=== PATIENT | female | born 1995 | race Caucasian/White ===

== ENCOUNTER 2017-08-30 20:05 | Emergency (ER) | payer BC ==
[2017-08-30 20:42] LABS: Urine Blood NEGATIVE (NEG); Urine Glucose NEGATIVE (NEG); Urine Protein NEGATIVE (NEG); Urine Specific Gravity <1.005 (1.005-1.030)
[2017-08-30] MEDS ORDERED: NA CHLORIDE 0.9% 1,000 ML ONE (20:54)
[2017-08-30] MEDS ORDERED: ACETAMINOPHEN 500 MG TAB ONE (21:25)
[2017-08-30 21:26] LABS: Absolute Lymphocytes (CBC) 1.1 K/uL (0.7-4.9); Absolute Monocytes 0.8 K/uL (0.1-1.3); Absolute Neutrophil 8.2 K/uL (1.8-8.0); Basophils % 0.1 % (0-1.3); Bicarbonate 25 mEq/L (21-31); Eosinophils % 0.5 % (0-4.4); Glucose Level 99 mg/dL (65-120); Hematocrit 35.7 % (36.0-45.0); Lymphocytes % 10.9 % (15.3-44.8); MCH 32.1 pg (27.0-35.0); MCV 90.2 fL (80-100); MPV 9.8 fL (7.6-11.3); Monocytes % 7.9 % (3.3-12.3); Potassium 3.3 mEq/L (3.6-5.0); RBC Red Blood Cell Count 3.95 M/uL (3.86-4.86); Sodium Level 136 mEq/L (135-145)
[2017-08-30 21:26] LABS: Urine Bacteria <20 /HPF (<20); Urine RBC <5 /HPF (NONE SEEN)
[2017-08-30 21:27] LABS: Urine Culture Reflex Order NOT NEEDED
[2017-08-30 21:27] LABS: BUN Blood Urea Nitrogen 8 mg/dL (6-20)
[2017-08-30] MEDS ORDERED: KETOROLAC 30 MG/ML INJ ONE (22:10)
--- NOTE | 2017-08-30 22:18 | EDPHYS ---
Physician Documentation [facility] Name: Nadege Colmenares Age: 22 yrs Sex: Female : 1995 Arrival Date: 08/30/2017 Time: 20:09 Bed 8 Private MD: ED Physician Anupam Bartlett HPI: 08/30 22:09 This 22 yrs old Female presents to ER via Ambulatory with complaints of snw Headache, Sore Throat, Numbness. 22:09 The patient complains of pain to the top of head and forehead. The patient describes snw the headache as a pressure, unrelenting. Onset: The symptoms/episode began/occurred suddenly. Associated signs and symptoms: Pertinent positives: blurred vision, sore throat + strep, started Zmax today. No vomiting. Severity of symptoms: At its worst the pain was moderate, severe. 22:11 The patient presents with sore throat, dysphagia. The patient describes throat pain as snw raw, scratchy. Onset: The symptoms/episode began/occurred suddenly. Severity of symptoms: At their worst the symptoms were moderate, severe. Modifying factors: The symptoms are alleviated by nothing. Associated signs and symptoms: Pertinent positives: fever, flu-like symptoms, headache, Sore throat dizziness, blurred vision. 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 The patient has been recently seen by a physician:. dx with strep, zithromax started today. 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 - Social history:: Smoking status: Patient uses tobacco products, smokes one-half pack cigarettes per day. ROS: 22:13 Eyes: Negative for injury, pain, redness, and discharge. snw 22:13 Neck: Negative for injury, pain, and swelling. 22:13 Cardiovascular: Negative for chest pain, palpitations, and edema, Respiratory: Negative for shortness of breath, cough, wheezing, and pleuritic chest pain, Abdomen/GI: Negative for abdominal pain, nausea, vomiting, diarrhea, and constipation, Back: Negative for injury and pain, : Negative for injury, bleeding, discharge, and swelling, MS/Extremity: Negative for injury and deformity, Skin: Negative for injury, rash, and discoloration. 22:13 Constitutional: Positive for body aches, fatigue, malaise, poor PO intake. 22:13 ENT: Positive for sore throat, headache, numbness, dizziness. 22:13 Neuro: Positive for dizziness, headache, numbness, visual changes. Exam: 22:14 Head/Face: Normocephalic, atraumatic. Eyes: Pupils equal round and reactive to light, snw extra-ocular motions intact. Lids and lashes normal. Conjunctiva and sclera are non-icteric and not injected. Cornea within normal limits. Periorbital areas with no swelling, redness, or edema. 22:14 Chest/axilla: Normal chest wall appearance and motion. Nontender with no deformity. No lesions are appreciated. 22:14 Respiratory: Lungs have equal breath sounds bilaterally, clear to auscultation and percussion. No rales, rhonchi or wheezes noted. No increased work of breathing, no retractions or nasal flaring. Abdomen/GI: Soft, non-tender, with normal bowel sounds. No distension or tympany. No guarding or rebound. No evidence of tenderness throughout. Back: No spinal tenderness. No costovertebral tenderness. Full range of motion. Skin: Warm, dry with normal turgor. Normal color with no rashes, no lesions, and no evidence of cellulitis. MS/ Extremity: Pulses equal, no cyanosis. Neurovascular intact. Full, normal range of motion. Neuro: Awake and alert, GCS 15, oriented to person, place, time, and situation. Cranial nerves II-XII grossly intact. Motor strength 5/5 in all extremities. Sensory grossly intact. Cerebellar exam normal. Normal gait. Psych: Awake, alert, with orientation to person, place and time. Behavior, mood, and affect are within normal limits. 22:14 Constitutional: The patient appears alert, awake, anxious, febrile, uncomfortable. 22:14 ENT: TM's: are normal, Nose: is normal, Mouth: is normal, Posterior pharynx: Tonsils: bilaterally enlarged, with erythema, with exudate, Voice: is normal. 22:14 Cardiovascular: Rate: tachycardic, Rhythm: regular, Pulses: no pulse deficits are appreciated, Heart sounds: normal. Vital Signs: 20:21 BP 118 / 73 RA Sitting (auto/reg); Pulse 119; Resp 18; Temp 99.1(TE); Pulse Ox 98% ; ak1 Weight 72.57 kg (R); Height 5 ft. 8 in. (172.72 cm) (R); Pain 6/10; 20:21 BP 91 / 66 RA Standing (auto/reg); Pulse 121; Resp 18; Pulse Ox 98% on R/A; ak1 21:19 BP 106 / 70; Pulse 103; Resp 18; Pulse Ox 100% on R/A; lp1 20:21 Body Mass Index 24.33 (72.57 kg, 172.72 cm) ak1 MDM: 20:45 Patient medically screened. snw 22:19 Data reviewed: vital signs, nurses notes. Data interpreted: Pulse oximetry: on room air snw is 100 %. Interpretation: normal. Counseling: I had a detailed discussion with the patient and/or guardian regarding: the historical points, exam findings, and any diagnostic results supporting the discharge/admit diagnosis, lab results, the need for outpatient follow up, to return to the emergency department if symptoms worsen or persist or if there are any questions or concerns that arise at home. Special discussion: Based on the history and exam findings, there is no indication for further emergent testing or inpatient evaluation. I discussed with the patient/guardian the need to see the ENT specialist for further evaluation of the symptoms. I discussed with the patient/guardian the need to see the primary care provider for further evaluation of the symptoms. 08/30 20:24 Order name: Strep; Complete Time: 21:23 w 08/30 20:24 Order name: Urine Culture [facility] 08/30 20:24 Order name: Urine Microscopic Only; Complete Time: 21:29 snw 08/30 20:31 Order name: Urine Dipstick--Ancillary (enter results); Complete Time: 20:44 mt 08/30 20:45 Order name: CBC with Diff; Complete Time: 21:37 snw 08/30 20:45 Order name: Chem 7; Complete Time: 21:28 snw 08/30 20:24 Order name: Urine Test (obtain specimen); Complete Time: 22:25 [facility] 08/30 20:24 Order name: Urine Dipstick-Ancillary (obtain specimen); Complete Time: 22:25 [facility] 08/30 20:45 Order name: Blood Culture Adult (2) [facility] 08/30 21:25 Order name: Test, Serum; Complete Time: 21:52 mg2 Administered Medications: 21:06 Drug: NS 0.9% 1000 ml Route: IV; Rate: 1 bolus; Site: right antecubital; mg2 22:24 Follow up: Response: No adverse reaction; IV Status: Completed infusion mg2 21:27 Drug: Tylenol 1000 mg Route: PO; mg2 22:00 Follow up: Response: No adverse reaction; Pain is decreased mg2 22:12 Drug: TORadol 30 mg Route: IVP; Site: right antecubital; mg2 22:31 Follow up: Response: No adverse reaction; Pain is decreased mg2 Disposition: 08/31 10:53 Co-signature as Attending Physician, Anupam Bartlett MD. rn Disposition: 08/30/17 22:18 Discharged to Home. Impression: Streptococcal tonsillitis, Dehydration. - Condition is Stable. - Discharge Instructions: Dehydration, Adult, General Headache Without Cause, Strep Throat, Rehydration, Adult. - Prescriptions for Diclofenac Sodium 75 mg Oral Tablet Sustained Release - take 1 tablet by ORAL route 2 times per day; 30 tablet. - Work release form, Medication Reconciliation Form, Thank You Letter, Antibiotic Education, Prescription Opioid Use form. - Follow up: Private Physician; When: 2 - 3 days; Reason: Recheck today's complaints, Continuance of care, Re-evaluation by your physician. Follow up: Dorothy Kumari MD; When: 1 week; Reason: Recheck today's complaints, Continuance of care. Signatures: Dispatcher [employer] EDMS Emily Nichols, ADMINISTRATIVE SUPPORT SPECIALIST-C ADMINISTRATIVE SUPPORT SPECIALIST-Csnw Anupam Bartlett MD MD rn Krenek, Amber, RN RN ak1 Hang Mcfarland RN RN mg2 Corrections: (The following items were deleted from the chart) 08/30 22:31 22:18 08/30/2017 22:18 Discharged to Home. Impression: Streptococcal tonsillitis; mg2 Dehydration. Condition is Stable. Forms are Medication Reconciliation Form, Thank You Letter, Antibiotic Education, Prescription Opioid Use. Follow up: Private Physician; When: 2 - 3 days; Reason: Recheck today's complaints, Continuance of care, Re-evaluation by your physician. Follow up: Dorothy Kumari; When: 1 week; Reason: Recheck today's complaints, Continuance of care. snw
--- NOTE | 2017-08-30 22:18 | ER ---
Nurse's Notes [facility] Name: Nadege Colmenares Age: 22 yrs Sex: Female : 1995 Arrival Date: 08/30/2017 Time: 20:09 Bed 8 Private MD: Diagnosis: Streptococcal tonsillitis;Dehydration Presentation: 08/30 20:21 Presenting complaint: Patient states: headache since 1600 with dizziness. pt c/o left ak1 side of body "goes numb" pt with equal bilateral hand statistics intern and steady gait. pt with clear speech and answers questions appropriately. Transition of care: patient was not received from another setting of care. Onset of symptoms was August 30, 2017. Initial Sepsis Screen: Does the patient meet any 2 criteria? No. Patient's initial sepsis screen is negative. Does the patient have a suspected source of infection? No. Patient's initial sepsis screen is negative. Note pt stated antibiotics today for strep from Tele doc. Care prior to arrival: None. 20:21 Method Of Arrival: Ambulatory ak1 20:21 Acuity: STEVEN 3 ak1 Triage Assessment: 20:23 Headache History: Denies prior headaches. General: Appears uncomfortable, Behavior is ak1 calm, cooperative. Pain: Complains of pain in headache Pain currently is 6 out of 10 on a pain scale. Pain began 4 hours ago. Also complains of no other associated symptoms. EENT: Reports dx strep today. Neuro: Level of Consciousness is awake, alert, obeys commands, lethargic, Oriented to person, place, time, situation, Distance Learning Unit Leader are equal bilaterally Moves all extremities. Gait is steady, Speech is normal, Facial symmetry appears normal. Cardiovascular: Rhythm is sinus tachycardia. Respiratory: No deficits noted. GI: No signs and/or symptoms were reported involving the gastrointestinal system. : No signs and/or symptoms were reported regarding the genitourinary system. Derm: No signs and/or symptoms reported regarding the dermatologic system. Musculoskeletal: No signs and/or symptoms reported regarding the musculoskeletal system. 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 - Social history:: Smoking status: Patient uses tobacco products, smokes one-half pack cigarettes per day. Screenin:25 Abuse screen: Denies threats or abuse. Denies injuries from another. Nutritional ak1 screening: No deficits noted. Tuberculosis screening: No symptoms or risk factors identified. Fall Risk None identified. Assessment: 21:07 General: Appears in no apparent distress. comfortable, Behavior is calm, cooperative. mg2 Pain: Complains of pain in head Pain does not radiate. Pain currently is 6 out of 10 on a pain scale. Quality of pain is described as aching, Pain began 1 day ago. Is intermittent, Alleviated by rest. Neuro: Level of Consciousness is awake, alert, obeys commands, Oriented to person, place, time. Cardiovascular:. Respiratory: Airway is patent Respiratory effort is even, unlabored, Respiratory pattern is regular, symmetrical. GI: No signs and/or symptoms were reported involving the gastrointestinal system. : No signs and/or symptoms were reported regarding the genitourinary system. EENT: No signs and/or symptoms were reported regarding the EENT system. Derm: Skin is intact, Skin is pink, warm \\T\\ dry. normal. Musculoskeletal: Circulation, motion, and sensation intact. 22:13 Reassessment: Patient appears in no apparent distress at this time. Patient and/or mg2 family updated on plan of care and expected duration. Pain level reassessed. Patient is alert, oriented x 3, equal unlabored respirations, skin warm/dry/pink. Vital Signs: 20:21 BP 118 / 73 RA Sitting (auto/reg); Pulse 119; Resp 18; Temp 99.1(TE); Pulse Ox 98% ; ak1 Weight 72.57 kg (R); Height 5 ft. 8 in. (172.72 cm) (R); Pain 6/10; 20:21 BP 91 / 66 RA Standing (auto/reg); Pulse 121; Resp 18; Pulse Ox 98% on R/A; ak1 21:19 BP 106 / 70; Pulse 103; Resp 18; Pulse Ox 100% on R/A; lp1 20:21 Body Mass Index 24.33 (72.57 kg, 172.72 cm) ak1 ED Course: 20:09 Patient arrived in ED. es 20:23 Triage completed. ak1 20:23 Arm band placed on Patient placed in waiting room, Patient notified of wait time. ak1 20:24 Emily Nichols FNP-C [facility]. snw 20:24 Anupam Bartlett MD is Attending Physician. snw 20:25 Patient has correct armband on for positive identification. ak1 20:53 Hang Mcfarland, RN is Primary Nurse. mg2 21:09 No provider procedures requiring assistance completed. Inserted saline lock: 20 gauge mg2 in right antecubital area, using aseptic technique. Blood collected. 22:17 Dorothy Kumari MD is Referral Physician. snw 22:31 IV discontinued, intact, bleeding controlled, No redness/swelling at site. Pressure mg2 dressing applied. Administered Medications: 21:06 Drug: NS 0.9% 1000 ml Route: IV; Rate: 1 bolus; Site: right antecubital; mg2 22:24 Follow up: Response: No adverse reaction; IV Status: Completed infusion mg2 21:27 Drug: Tylenol 1000 mg Route: PO; mg2 22:00 Follow up: Response: No adverse reaction; Pain is decreased mg2 22:12 Drug: TORadol 30 mg Route: IVP; Site: right antecubital; mg2 22:31 Follow up: Response: No adverse reaction; Pain is decreased mg2 Outcome: 22:18 Discharge ordered by MD. snw 22:30 Discharged to home ambulatory, with family. mg2 22:30 Condition: stable 22:30 Discharge instructions given to patient, family, Instructed on discharge instructions, follow up and referral plans. Demonstrated understanding of instructions, follow-up care, medications, Prescriptions given X 1. 22:31 Patient left the ED. mg2 Signatures: Emily Nichols FNP-C MEAT BUTCHER-Csnw Nancy Burns Zuleyka Cuellar, RN RN lp1 Jessica Bingham RN RN ak1 Hang Mcfarland, LIZABETH RN mg2
== END 2017-08-30 22:31 | disposition home or self-care (01) ==
LOC: ER 20:05
DX: J02.0 Streptococcal pharyngitis (principal); E86.0 Dehydration; F17.210 Nicotine dependence, cigarettes, uncomplicated; F32.9 Major depressive disorder, single episode, unspecified
CPT/HCPCS: 36415; 80048; 81003; 81015; 84703; 85025; 87040; 87081; 87086; 87088; 96361; 96374; 99284; J7030

== ENCOUNTER 2017-10-29 10:08 | Day surgery (SDC) | payer BC ==
--- OUTSIDE RECORDS SUMMARY | 2017-10-29 10:16 | XMS REPORT ---
:1995 Author Organization eClinicalWorks Care Team Providers Name Role Phone Delmer Pending Sale To [facility] Provider Role Unavailable Allergies, Adverse Reactions, Alerts Substance Reaction Event Type Amoxicillin Resistant Drug Allergy Problems Problem Type Condition Code Onset Dates Condition Status Problem Primary hypersomnia F51.11 Active Problem Adult BMI 27.0-27.9 kg/sq m Z68.27 Active Problem Insomnia G47.00 Active Problem Fatigue, unspecified type R53.83 Active Problem Obstructive sleep apnea G47.33 Active Problem Post-traumatic stress disorder, F43.12 Active chronic Problem Snoring R06.83 Active Problem Depression with anxiety F41.8 Active Medications Medication Code System Code Instructions Start End Date Status Dosage Date Keflex [facility] 49409122531 500 MG Orally September 03, Active 1 capsule every 12 hrs 2017 Results No Known Results Summary Purpose eClinicalWorks Submission
--- OUTSIDE RECORDS SUMMARY | 2017-10-29 10:16 | XMS REPORT ---
:1995 Author Organization eClinicalWorks Care Team Providers Name Role Phone Anson Dowell Provider Role Unavailable Allergies No Known Allergies Problems Problem Type Condition Code Onset Dates Condition Status Assessment Post-traumatic stress disorder, F43.12 Active chronic Problem Primary hypersomnia F51.11 Active Assessment Depression with anxiety F41.8 Active Problem Adult BMI 27.0-27.9 kg/sq m Z68.27 Active Problem Insomnia G47.00 Active Problem Fatigue, unspecified type R53.83 Active Problem Obstructive sleep apnea G47.33 Active Problem Post-traumatic stress disorder, F43.12 Active chronic Problem Snoring R06.83 Active Problem Depression with anxiety F41.8 Active Assessment Fatigue, unspecified type R53.83 Active Assessment Obstructive sleep apnea G47.33 Active Assessment Insomnia G47.00 Active Assessment Adult BMI 27.0-27.9 kg/sq m Z68.27 Active Medications Medication Code Code Instructions Start End Status Dosage System Date Date Lexapro [facility] 25316253865 10 MG Orally Active 1 tablet Once a day Levocetirizine [facility] 74523663313 5 MG Orally Active 1 tablet in Dihydrochloride Once a day the evening Phentermine HCl ND 56273429811 30 MG Orally August 26, Active 1 capsule Once a day 2017 Lexapro [facility] 21672051946 10 MG Orally July Active 1 tablet Once a day 2017 Lunesta [facility] 77974804384 1 MG Orally Active 1 tablet Once a day immediately before bedtime Phentermine HCl ND 52613520440 15 MG Orally August Inactive 1 capsule Once a day 2017 Duexis [facility] 92932557295 800-26.6 MG Active 1 tablet Orally Three times a day Xanax [facility] 92177477723 0.25 MG Orally Active 1 tablet ONCE A DAY PRN PANIC ATTACK/ANXIETY Results No Known Results Summary Purpose eClinicalWorks Submission
--- OUTSIDE RECORDS SUMMARY | 2017-10-29 10:16 | XMS REPORT ---
:1995 Author Organization eClinicalWorks Care Team Providers Name Role Phone Anson Dowell Provider Role Unavailable Allergies, Adverse Reactions, Alerts [...] Start End Status Dosage System Date Date Levocetirizine [facility] 71973540305 5 MG Orally Active 1 tablet in Dihydrochloride Once a day the evening Keflex ND 59847828798 500 MG Orally September 03, Active 1 capsule every 12 hrs 2017 Lunesta [place] 24519339853 1 MG Orally Active 1 tablet Once a day immediately before bedtime Lexapro [facility] 96678733393 20 MG Orally Active 1 tablet Once a day Duexis [facility] 38881752107 800-26.6 MG Active 1 tablet Orally Three times a day Phentermine HCl ND 78851988974 37.5 MG Orally Active 1 capsule Once a day Lexapro [facility] 29578027367 10 MG Orally Active 1 tablet Once a day Xanax ND 44976223242 0.25 MG Orally Active 1 tablet ONCE A DAY PRN PANIC ATTACK/ANXIETY Results No Known Results Summary Purpose eClinicalWorks Submission
--- OUTSIDE RECORDS SUMMARY | 2017-10-29 10:16 | XMS REPORT ---
[...] End Status Dosage System Date Date Levocetirizine [facility] 08223541558 5 MG Orally Active 1 tablet in Dihydrochloride Once a day the evening Phentermine HCl [facility] 90200098679 15 MG Orally July Active 1 capsule Once a day 2017 Xanax [facility] 88807755775 0.25 MG Orally Active 1 tablet ONCE A DAY PRN PANIC ATTACK/ANXIETY Lexapro [facility] 80206083933 10 MG Orally June Active 1/2 tab once Once a day 26, daily x 4 2018 days, then 1 tablet Lunesta [facility] 21582193154 1 MG Orally Active 1 tablet Once a day immediately before bedtime Duexis [facility] 41555372446 800-26.6 MG Active 1 tablet Orally Three times a day Trintellix [facility] 09884159440 10 MG Orally Inactive 1 tablet Once a day Results No Known Results Summary Purpose eClinicalWorks Submission
[2017-10-29] MEDS ORDERED: Ringers Lactate 1,000 ML IV ONE (10:27)
[2017-10-29 10:28] LABS: Specific Gravity 1.025 (1.005-1.030)
[2017-10-29] MEDS ORDERED: PROPOFOL 200 MG/20 ML VIAL IV ONE (11:01)
[2017-10-29] MEDS ORDERED: MIDAZOLAM HCL 2 MG/2 ML INJ ONE (11:02)
[2017-10-29] MEDS ORDERED: LIDOCAINE 2% MPF 5 ML VIAL ONE (11:02)
[2017-10-29] MEDS ORDERED: ONDANSETRON HCL 40 MG/20 ML VIAL ONE (11:03)
[2017-10-29] MEDS ORDERED: FENTANYL CITR 100 MCG/2 ML ONE (11:03)
[2017-10-29] MEDS ORDERED: ROCURONIUM 50 MG/5 ML VIAL IV ONE (11:03)
[2017-10-29] MEDS ORDERED: DEXAMETHASONE 10 MG/ML VIAL ONE (11:42)
[2017-10-29] MEDS ORDERED: EPINEPHRINE/PF 1 MG/ML AMP ONE (11:50)
[2017-10-29] MEDS: BUPIVACA 0.25%/EPI 0.0005%/PF 30 ML VIAL ONE ×2 (11:50→11:55)
[2017-10-29] MEDS ORDERED: GLYCOPYRROLATE 0.2 MG/ML SYR ONE (12:02)
[2017-10-29] MEDS ORDERED: NEOSTIGMINE 1 MG/ML -5 ML SYRINGE ONE (12:02)
--- NOTE | 2017-10-29 12:12 | P.OP ---
Pre-Op Diagnosis: Recurrent acute tonsillitis, Chronic tonsillitis Post-Op Diagnosis: Recurrent acute tonsillitis, Chronic tonsillitis Procedure: Tonsillectomy Anesthesia: Other (GA via ETT) Fluids/ Blood products: Other (crystalloid 400ml) Estimated blood loss: Other (<5ml) Specimen: Other (B tonsils) Findings: scarred tonsils Implants: None Indication: Patient persistent issues in spite of good medical management. Details of Operation: The patient was brought to the operating room and placed under general anesthesia via endotracheal tube. The head of bed was turned 90 degrees. A Shoulder roll was placed and the neck extended. A head drape was applied. The McIvor mouth gag was placed and suspended from the Ruiz stand. The oxygen concentrate was confirmed with the helpdesk analyst and was less than forty percent. Weight-based dexamethasone was administered by the helpdesk analyst. The soft palate was palpated and there was no submucous cleft. A red rubber catheter was placed in the nose and secured to retract the soft palate. The tonsils were noted to be chronically inflammed and scarred. The left tonsil was grasped with a straight Allis clamp. The bovie electocautery was used to incision the mucosa over the anterior pillar and identify the tonsillar capsule. The tonsil was dissected using cautery and blunt dissection until free from soft tissue attachments. A tonsil ball was placed to aid hemostasis. The right tonsil was removed in a similar manner. The laryngeal mirror was used to visualize the nasopharynx. The adenoid size was small. The adenoids were not removed. Hemostasis was achieved using packing and cautery as needed. Blood loss was minimal. All packing was removed. The tonsillar fossae were injected with 0.25% Marcaine with epinephrine. A total of 2 mL was used. A Salum sump orogastric tube was used to decompress the stomach. The red rubber catheter was removed and used to suction the nasopharynx and nasal cavity. The mouth gag was removed; there was no evidence of injury to the lips, teeth or tongue. The mandible was mobile. Disposition: The patient was then awakened from anesthesia and taken to the recovery room in stable condition.
[2017-10-29] MEDS ORDERED: MEPERIDINE HCL 25 MG/0.5 ML ONE ×3 (12:31→12:47)
[2017-10-29] MEDS ORDERED: ONDANSETRON 4 MG/2 ML VIAL ONE (12:35)
[2017-10-29] MEDS ORDERED: HYDROCOD 2.5mg-ACETAMIN 108mg/5mL Soln ONE (13:19)
== END 2017-10-29 14:05 | disposition home or self-care (01) ==
LOC: OR 10:08
PROVIDERS: ATTEND Otolaryngology
PROC: 0CTPXZZ Resection of Tonsils, External Approach (ICD-10-PCS; principal; 2017-10-29 12:00)
DX: J35.01 Chronic tonsillitis (principal); J03.01 Acute recurrent streptococcal tonsillitis; F32.9 Major depressive disorder, single episode, unspecified; Z80.9 Family history of malignant neoplasm, unspecified; Z82.49 Family history of ischemic heart disease and other diseases of the circulatory system; Z83.79 Family history of other diseases of the digestive system
CPT/HCPCS: 81025; 88304; J0171; J1100; J2175; J2250; J2405; J2710; J3010

== ENCOUNTER → 2022-03-23 | Day surgery (SDC) | payer BC ==
--- NOTE | 2022-03-23 14:35 | RAD REPORT ---
EXAM DESCRIPTION: US - Guided FNA Non Breast - 03/23/2022 11:53 am CLINICAL HISTORY: E04.1 COMPARISON: Thyroid Gland ultrasound dated 03/11/2022 TECHNIQUE: Patient presents for ultrasound-guided FNA of 2 right thyroid lobe nodules detailed on March 11 examination. The FNA procedure, risks and alternatives were discussed with the patient in detail. After answering all questions both oral and written consent were obtained. Patient had no contraindicated allergy or medication history. On preliminary imaging the smaller more hypoechoic nodule is identifiable. The second slightly larger nodule was more difficult to visualize. This larger nodule was positioned more posteriorly and later al placing the and nodule along the posterior wall of the right carotid artery. Preliminary sonographic evaluation to determine access site failed to identify any safe pathway to re ach the larger nodule. The anterior right neck was prepped and draped in the usual sterile fashion. Firm approach anterior a nd lateral to the small hypoechoic nodule the skin and deeper tissues were anesthetized with 1% lidoc guerrero. Access to the small hypoechoic nodule was difficult as well. FNA was performed using four 25 ga uge needles. The pressure applied to pass the needle into the thyroid gland cause the small hypoechoi c nodule to displace more posteriorly and medially. The nodule flattened out and became more elliptic al in shape closely abutting the trachea. This limited the ability for optimal to and fro excursions of the needle tip. The FNA needles did appear to traverse the nodule however this was difficult to visualize. IMPRESSION: Ultrasound-guided FNA was performed of the smaller of the 2 right thyroid nodules. As de tailed above, the small nodule deformed under pressure from the needle closely abutting the trachea a nd becoming more difficult to visualize. The larger of the 2 nodules was in the deep lateral position. The carotid artery blocked access to th is nodule. The adequacy of the FNA procedure the small nodule is questionable from this procedure. If the final pathology is nondiagnostic, this may be due to inadequate sampling of the nodule.
== END ==
LOC: FNA 10:33
PROVIDERS: ATTEND Family Medicine
PROC: 0GBH3ZX Excision of Right Thyroid Gland Lobe, Percutaneous Approach, Diagnostic (ICD-10-PCS; principal; 2022-03-23)
DX: E04.1 Nontoxic single thyroid nodule (principal)
CPT/HCPCS: 88162; 88305